=== PATIENT | male | born 1950 | race Caucasian/White ===

== ENCOUNTER 2022-01-15 | Observation (INO) | payer MEDICARE, OTHER ==
[2022-01-15 00:36] VITALS: BMI 36.9
[2022-01-15] MEDS ORDERED: Ketorolac Tromethamine 30 MG/ML VIAL IVP PRN (01:47)
[2022-01-15] MEDS ORDERED: Cyclobenzaprine 10 MG TAB PO PRN (01:48)
[2022-01-15] MEDS ORDERED: Senokot S 8.6-50 MG TAB PO PRN (01:49)
[2022-01-15] MEDS ORDERED: Bisacodyl 5 MG TAB PO PRN (01:49)
[2022-01-15] MEDS ORDERED: Ondansetron PF 4 MG/2 ML Vial IVP PRN (01:49)
[2022-01-15] MEDS ORDERED: Acetaminophen 325 MG TAB PO PRN (01:52)
[2022-01-15] MEDS: Albuterol Sulfate 2.5 mg/3 ml Neb NEB SCH ×3 (02:49→10:45)
[2022-01-15 06:16] LABS: #Monocytes 0.3 thou/uL (0.11-0.59); %Basophils 0.1 % (0.0-1.0); %Eosinophils 0.1 % (0.0-10.0); %Lymphocytes 9.3 % (21.0-51.0); %Monocytes 2.2 % (0.0-10.0); %Neutrophils 88.4 % (42.0-75.0); Hemoglobin 15.9 g/dL (14.0-18.0); Mean Corpuscular Hemoglobin 30.3 pg (27.0-31.0); Mean Corpuscular Volume 94.6 fL (78.0-98.0); Mean Platelet Volume 6.6 fL (7.4-10.4); Platelet Count 302 thou/uL (130-400); RBC Distribution Width 13.6 % (11.5-14.5); Red Blood Cell (RBC) Count 5.25 mill/uL (4.70-6.10); White Blood Cell (WBC) Count 11.3 thou/uL (4.8-10.8)
[2022-01-15 06:52] LABS: Anion Gap 20 mmol/L (10-20); BUN (Urea Nitrogen) 13 mg/dL (8.4-25.7); Calc. Creatinine Clearance 138 mL/min (70-130); Calcium 9.1 mg/dL (7.8-10.44); Carbon Dioxide 20 mmol/L (23-31); Chloride 96 mmol/L (98-107); Glucose 159 mg/dL (80-115); Potassium 3.8 mmol/L (3.5-5.1); Sodium 132 mmol/L (136-145)
[2022-01-15] MEDS: Ipratropium Bromide 2.5 ml Neb NEB SCH ×2 (07:17→13:45)
[2022-01-15] MEDS: Enoxaparin Sodium 40 MG/0.4 ML SYRINGE SC SCH (09:02)
[2022-01-15] MEDS: Aspirin 81 mg Enteric Coated Tablet PO SCH (09:02)
[2022-01-15] MEDS: Bupropion 150 MG SR TAB PO SCH ×2 (09:02→20:22)
[2022-01-15] MEDS: Tamsulosin HCl 0.4 MG CAP PO SCH (09:02)
[2022-01-15] MEDS: Lidocaine 5% Patch TD SCH (09:02)
[2022-01-15] MEDS: Loratadine 10 MG TAB PO SCH (09:02)
[2022-01-15] MEDS ORDERED: Magnevist 469MG/ML 20 ML VIAL ONE (10:29)
[2022-01-15] MEDS ORDERED: Dexamethasone 4 MG TAB PO SCH ×2 (10:30→21:00)
[2022-01-15] MEDS ORDERED: Albuterol Sulfate 2.5 mg/3 ml Neb IPPB PRN (13:37)
[2022-01-15 16:23] LABS: SARS-CoV-2 PCR by NAA Not Detected (NotDetected)
[2022-01-15] MEDS ORDERED: traZODone HCl 150 MG TAB PO SCH (21:00)
[2022-01-15] MEDS ORDERED: Lidocaine Patch Removal TOP SCH (21:00)
[2022-01-15] MEDS ORDERED: Atorvastatin Calcium 40 MG TAB PO SCH (21:00)
[2022-01-16] MEDS: Lidocaine 5% Patch TD SCH (08:49)
[2022-01-16] MEDS: Aspirin 81 mg Enteric Coated Tablet PO SCH (08:50)
[2022-01-16] MEDS: Bupropion 150 MG SR TAB PO SCH (08:50)
[2022-01-16] MEDS: Tamsulosin HCl 0.4 MG CAP PO SCH (08:50)
[2022-01-16] MEDS: Enoxaparin Sodium 40 MG/0.4 ML SYRINGE SC SCH (08:50)
[2022-01-16] MEDS: Loratadine 10 MG TAB PO SCH (08:50)
[2022-01-16 11:44] VITALS: TEMP 98.1
[2022-01-16 13:33] VITALS: BP 136/83
== END 2022-01-16 14:05 | disposition home or self-care (01) ==
LOC: T4-B 00:20
PROVIDERS: ADMIT Family Medicine; ATTEND Family Medicine
DX: M47.816 Spondylosis without myelopathy or radiculopathy, lumbar region (principal); M47.815 Spondylosis without myelopathy or radiculopathy, thoracolumbar region; M47.817 Spondylosis without myelopathy or radiculopathy, lumbosacral region; M51.36 Other intervertebral disc degeneration, lumbar region; M51.26 Other intervertebral disc displacement, lumbar region; M48.061 Spinal stenosis, lumbar region without neurogenic claudication; M48.07 Spinal stenosis, lumbosacral region; N50.0 Atrophy of testis; N50.89 Other specified disorders of the male genital organs; R29.6 Repeated falls; J44.9 Chronic obstructive pulmonary disease, unspecified; E87.1 Hypo-osmolality and hyponatremia; I25.10 Atherosclerotic heart disease of native coronary artery without angina pectoris; F17.210 Nicotine dependence, cigarettes, uncomplicated; N40.0 Benign prostatic hyperplasia without lower urinary tract symptoms; E78.5 Hyperlipidemia, unspecified; N50.3 Cyst of epididymis; Z79.82 Long term (current) use of aspirin; Z79.899 Other long term (current) drug therapy; Z95.1 Presence of aortocoronary bypass graft; Z20.822 Contact with and (suspected) exposure to COVID-19
CPT/HCPCS: 36415; 72158; 76870; 80048; 82105; 84153; 84154; 84702; 85025; 93976; 94640; 96372; A9579; G0378; J1650; J7611; J7620; J8540; U0003; U0005

== ENCOUNTER 2023-02-23 11:41 | Inpatient (IN) | payer MEDICARE ==
[2023-02-23 12:18] LABS: #Basophils 0.1 thou/uL (0.0-0.2); #Eosinphils 0.1 thou/uL (0.0-0.7); Hemoglobin 13.6 g/dL (14.0-18.0); RBC Distribution Width 14.1 % (11.5-14.5)
[2023-02-23 12:20] LABS: #Monocytes 1.3 thou/uL (0.11-0.59); %Basophils 0.7 % (0.0-1.0); %Eosinophils 0.9 % (0.0-10.0); %Lymphocytes 13.9 % (21.0-51.0); %Monocytes 10.4 % (0.0-10.0); %Neutrophils 73.7 % (42.0-75.0); Mean Corpuscular HGB CONC 32.6 g/dL (32.0-36.0); Mean Corpuscular Hemoglobin 28.6 pg (27.0-31.0); Mean Corpuscular Volume 87.8 fl (78.0-98.0); Mean Platelet Volume 9.7 fL (7.4-10.4); Platelet Count 244 10x3/uL (130-400); Red Blood Cell (RBC) Count 4.75 mill/uL (4.70-6.10); White Blood Cell (WBC) Count 12.3 10x3/uL (4.8-10.8)
[2023-02-23 12:36] LABS: INR-International Normal Ratio 1.1; Prothrombin Time 14.3 sec (12.0-14.7)
[2023-02-23 12:37] LABS: PTT 38.3 sec (22.9-36.1)
[2023-02-23 12:50] LABS: ALT (SGPT) 15 U/L (8-55); AST (SGOT) 21 U/L (5-34); Albumin 3.7 g/dL (3.4-4.8); Alkaline Phosphatase 105 U/L (40-110); Anion Gap 14 mmol/L (10-20); BUN (Urea Nitrogen) 9 mg/dL (8.4-25.7); Bilirubin, Total 0.5 mg/dL (0.2-1.2); Calc. Creatinine Clearance 0 mL/min (70-130); Calcium 8.7 mg/dL (7.8-10.44); Carbon Dioxide 24 mmol/L (23-31); Chloride 95 mmol/L (98-107); Estimated GFR 100; Globulin 4.1 g/dL (2.4-3.5); Glucose 81 mg/dL (80-115); Potassium 3.9 mmol/L (3.5-5.1); Protein, Total 7.8 g/dL (5.8-8.1); Sodium 129 mmol/L (136-145)
[2023-02-23 15:01] VITALS: BMI 36.1
[2023-02-23] MEDS ORDERED: Ondansetron PF 4 MG/2 ML Vial IVP PRN (15:29)
[2023-02-23] MEDS ORDERED: hydrALAZINE 20 MG/ML VIAL SLOW IVP PRN (15:29)
[2023-02-23] MEDS ORDERED: Acetaminophen 650 MG Suppository PR PRN (15:29)
[2023-02-23] MEDS ORDERED: Senokot S 8.6-50 MG TAB PO PRN (15:29)
[2023-02-23] MEDS ORDERED: Ondansetron ODT 4 MG TAB PO PRN (15:29)
[2023-02-23] MEDS ORDERED: Aspirin 81 mg Enteric Coated Tablet PO SCH (15:45)
[2023-02-23] MEDS: Atorvastatin Calcium 40 MG TAB PO SCH (20:26)
[2023-02-24] MEDS ORDERED: Sterile Water 10 ML VIAL FS PRN (00:45)
[2023-02-24] MEDS ORDERED: OLANZapine 10 MG VIAL IM SCH (00:45)
[2023-02-24 05:16] LABS: #Basophils 0.1 thou/uL (0.0-0.2); #Eosinphils 0.1 thou/uL (0.0-0.7); #Monocytes 1.1 thou/uL (0.11-0.59); #Neutrophils 7.8 thou/uL (1.40-6.50); %Basophils 0.5 % (0.0-1.0); %Eosinophils 1.2 % (0.0-10.0); %Lymphocytes 14.9 % (21.0-51.0); %Monocytes 10.5 % (0.0-10.0); %Neutrophils 72.6 % (42.0-75.0); Hemoglobin 13.6 g/dL (14.0-18.0); Mean Corpuscular HGB CONC 32.8 g/dL (32.0-36.0); Mean Corpuscular Hemoglobin 28.5 pg (27.0-31.0); Mean Platelet Volume 9.6 fL (7.4-10.4); Platelet Count 246 10x3/uL (130-400); RBC Distribution Width 14.2 % (11.5-14.5); Red Blood Cell (RBC) Count 4.77 mill/uL (4.70-6.10); White Blood Cell (WBC) Count 10.8 10x3/uL (4.8-10.8)
[2023-02-24 05:42] LABS: Anion Gap 14 mmol/L (10-20); BUN (Urea Nitrogen) 9 mg/dL (8.4-25.7); Calc. Creatinine Clearance 179 mL/min (70-130); Calcium 8.7 mg/dL (7.8-10.44); Carbon Dioxide 24 mmol/L (23-31); Chloride 95 mmol/L (98-107); Cholesterol 113 mg/dl (< 200 Desired); Estimated GFR 102; Glucose 72 mg/dL (80-115); HDL Cholesterol 38 mg/dL (>60 Neg Risk); LDL Cholesterol, Calculated 63 mg/dL; Potassium 3.7 mmol/L (3.5-5.1); Sodium 129 mmol/L (136-145); Triglycerides 59 mg/dL (Less than 150)
[2023-02-24] MEDS ORDERED: Aspirin 81 mg Enteric Coated Tablet PO SCH (09:00)
[2023-02-24] MEDS ORDERED: Non-Formulary Item 1 EACH (Tiotropium Bromide [Spiriva Handihaler] 18 MCG Cap.W.Dev) IH SCH (09:00)
[2023-02-24] MEDS ORDERED: Lorazepam 2 MG/ML VIAL SLOW IVP SCH (10:12)
[2023-02-24] MEDS: Aspirin 300 MG Suppository PR SCH (10:14)
[2023-02-24] MEDS: Sodium Chloride 0.9% 1,000 ML IV SCH (10:16)
[2023-02-24 11:13] LABS: Potassium, Urine 47.9 mmol/L
[2023-02-24] MEDS: Ipratropium Bromide 2.5 ml Neb NEB SCH ×2 (13:24→19:30)
[2023-02-24] MEDS: Tamsulosin HCl 0.4 MG CAP PO SCH (15:39)
[2023-02-24] MEDS: Atorvastatin Calcium 40 MG TAB PO SCH (20:36)
[2023-02-25] MEDS: Ipratropium Bromide 2.5 ml Neb NEB SCH ×4 (01:08→19:55)
[2023-02-25 05:30] LABS: #Basophils 0.1 thou/uL (0.0-0.2); #Eosinphils 0.2 thou/uL (0.0-0.7); #Monocytes 1.2 thou/uL (0.11-0.59); #Neutrophils 6.8 thou/uL (1.40-6.50); %Basophils 0.8 % (0.0-1.0); %Eosinophils 2.3 % (0.0-10.0); %Lymphocytes 15.2 % (21.0-51.0); %Monocytes 12.2 % (0.0-10.0); %Neutrophils 69.3 % (42.0-75.0); Hemoglobin 12.7 g/dL (14.0-18.0); Mean Corpuscular HGB CONC 32.7 g/dL (32.0-36.0); Mean Corpuscular Hemoglobin 28.5 pg (27.0-31.0); Mean Platelet Volume 9.7 fL (7.4-10.4); Platelet Count 223 10x3/uL (130-400); RBC Distribution Width 14.2 % (11.5-14.5); Red Blood Cell (RBC) Count 4.46 mill/uL (4.70-6.10); White Blood Cell (WBC) Count 9.8 10x3/uL (4.8-10.8)
[2023-02-25 05:55] LABS: Anion Gap 14 mmol/L (10-20); BUN (Urea Nitrogen) 8 mg/dL (8.4-25.7); Calc. Creatinine Clearance 168 mL/min (70-130); Calcium 8.5 mg/dL (7.8-10.44); Carbon Dioxide 26 mmol/L (23-31); Chloride 92 mmol/L (98-107); Estimated GFR 100; Glucose 61 mg/dL (80-115); Potassium 3.9 mmol/L (3.5-5.1); Sodium 128 mmol/L (136-145)
[2023-02-25] MEDS: Sodium Chloride 0.9% 1,000 ML IV SCH (07:24)
[2023-02-25] MEDS: Aspirin 300 MG Suppository PR SCH (09:21)
[2023-02-25] MEDS: Tamsulosin HCl 0.4 MG CAP PO SCH ×2 (09:22→09:33)
[2023-02-25 19:37] LABS: Sodium 129 mmol/L (136-145)
[2023-02-25] MEDS: Apixaban 5 MG TAB PO SCH (20:25)
[2023-02-25] MEDS: Atorvastatin Calcium 40 MG TAB PO SCH (20:25)
[2023-02-26] MEDS: Ipratropium Bromide 2.5 ml Neb NEB SCH ×4 (00:52→19:14)
[2023-02-26 02:09] LABS: #Basophils 0.1 thou/uL (0.0-0.2); #Eosinphils 0.3 thou/uL (0.0-0.7); #Monocytes 1.2 thou/uL (0.11-0.59); %Eosinophils 2.7 % (0.0-10.0); %Lymphocytes 18.4 % (21.0-51.0); %Monocytes 12.6 % (0.0-10.0); %Neutrophils 65.1 % (42.0-75.0); Hemoglobin 13.1 g/dL (14.0-18.0); Mean Corpuscular Hemoglobin 28.1 pg (27.0-31.0); Mean Platelet Volume 9.2 fL (7.4-10.4); Platelet Count 222 10x3/uL (130-400); RBC Distribution Width 14.3 % (11.5-14.5); Red Blood Cell (RBC) Count 4.67 mill/uL (4.70-6.10); White Blood Cell (WBC) Count 9.2 10x3/uL (4.8-10.8)
[2023-02-26 02:28] LABS: Sodium 128 mmol/L (136-145)
[2023-02-26 02:43] LABS: Anion Gap 13 mmol/L (10-20); BUN (Urea Nitrogen) 10 mg/dL (8.4-25.7); Calc. Creatinine Clearance 171 mL/min (70-130); Calcium 8.7 mg/dL (7.8-10.44); Carbon Dioxide 24 mmol/L (23-31); Chloride 95 mmol/L (98-107); Estimated GFR 100; Glucose 88 mg/dL (80-115); Potassium 3.8 mmol/L (3.5-5.1); Sodium 128 mmol/L (136-145)
[2023-02-26 08:15] LABS: Sodium 127 mmol/L (136-145)
[2023-02-26] MEDS: Apixaban 5 MG TAB PO SCH ×2 (10:55→20:27)
[2023-02-26] MEDS: Tamsulosin HCl 0.4 MG CAP PO SCH (10:55)
[2023-02-26 15:33] LABS: Sodium 126 mmol/L (136-145)
[2023-02-26 19:34] LABS: Sodium 127 mmol/L (136-145)
[2023-02-26] MEDS: Atorvastatin Calcium 40 MG TAB PO SCH (20:27)
[2023-02-27] MEDS: Ipratropium Bromide 2.5 ml Neb NEB SCH ×3 (01:27→13:07)
[2023-02-27 01:30] LABS: Sodium 126 mmol/L (136-145)
[2023-02-27 06:27] LABS: #Basophils 0.1 thou/uL (0.0-0.2); #Eosinphils 0.3 thou/uL (0.0-0.7); #Monocytes 1.3 thou/uL (0.11-0.59); #Neutrophils 5.4 thou/uL (1.40-6.50); %Basophils 0.9 % (0.0-1.0); %Eosinophils 3.6 % (0.0-10.0); %Lymphocytes 19.3 % (21.0-51.0); %Monocytes 14.5 % (0.0-10.0); %Neutrophils 61.5 % (42.0-75.0); Hemoglobin 13.2 g/dL (14.0-18.0); Mean Corpuscular HGB CONC 33.5 g/dL (32.0-36.0); Mean Corpuscular Hemoglobin 28.9 pg (27.0-31.0); Mean Corpuscular Volume 86.4 fl (78.0-98.0); Platelet Count 224 10x3/uL (130-400); RBC Distribution Width 14.4 % (11.5-14.5); Red Blood Cell (RBC) Count 4.56 mill/uL (4.70-6.10); White Blood Cell (WBC) Count 8.7 10x3/uL (4.8-10.8)
[2023-02-27 06:50] LABS: Anion Gap 13 mmol/L (10-20); BUN (Urea Nitrogen) 5 mg/dL (8.4-25.7); Calc. Creatinine Clearance 168 mL/min (70-130); Calcium 8.8 mg/dL (7.8-10.44); Carbon Dioxide 26 mmol/L (23-31); Chloride 91 mmol/L (98-107); Estimated GFR 100; Glucose 91 mg/dL (80-115); Potassium 3.8 mmol/L (3.5-5.1); Sodium 126 mmol/L (136-145)
[2023-02-27] MEDS: Tamsulosin HCl 0.4 MG CAP PO SCH (09:14)
[2023-02-27] MEDS: Apixaban 5 MG TAB PO SCH ×2 (09:15→20:44)
[2023-02-27] MEDS ORDERED: Sodium Chloride 1 GM TAB PO SCH (10:00)
[2023-02-27] MEDS ORDERED: Ipratropium Bromide 2.5 ml Neb NEB PRN (13:18)
[2023-02-27 14:41] LABS: Anion Gap 15 mmol/L (10-20); BUN (Urea Nitrogen) 6 mg/dL (8.4-25.7); Calc. Creatinine Clearance 149 mL/min (70-130); Calcium 9.4 mg/dL (7.8-10.44); Carbon Dioxide 26 mmol/L (23-31); Chloride 90 mmol/L (98-107); Estimated GFR 96; Glucose 111 mg/dL (80-115); Potassium 4.1 mmol/L (3.5-5.1); Sodium 127 mmol/L (136-145)
[2023-02-27] MEDS: Sodium Chloride 1 GM TAB PO SCH ×2 (15:08→20:44)
[2023-02-27 17:16] LABS: Bacteria/HPF None Seen HPF (None Seen); Bilirubin Negative (Negative); Blood, Urine Negative (Negative); Clarity Turbid (Clear); Glucose, Urine (Dipstick) Normal (Negative); Ketone, Urine Negative (Negative); Leukocyte 250 Leu/uL (Negative); Nitrite Negative (Negative); Protein, Urine (Dipstick) 10 mg/dL (Neg-Trace); RBC/HPF 0-3 HPF (0-3); Specific Gravity, Urine 1.013 (1.002-1.036); Squamous Epithelial 0-3 HPF (0-3)
[2023-02-27] MEDS: Acetaminophen 325 MG TAB PO PRN (20:43)
[2023-02-27] MEDS: Atorvastatin Calcium 40 MG TAB PO SCH (20:44)
[2023-02-27] MEDS: Ipratropium/Albuterol 3 ML NEB NEB PRN (21:36)
[2023-02-28 06:16] LABS: #Basophils 0.1 thou/uL (0.0-0.2); #Eosinphils 0.4 thou/uL (0.0-0.7); #Neutrophils 4.4 thou/uL (1.40-6.50); %Basophils 1.1 % (0.0-1.0); %Eosinophils 4.6 % (0.0-10.0); %Lymphocytes 24.6 % (21.0-51.0); %Monocytes 13.3 % (0.0-10.0); %Neutrophils 56.1 % (42.0-75.0); Hemoglobin 13.1 g/dL (14.0-18.0); Mean Corpuscular HGB CONC 32.9 g/dL (32.0-36.0); Mean Corpuscular Hemoglobin 28.5 pg (27.0-31.0); Mean Corpuscular Volume 86.7 fl (78.0-98.0); Mean Platelet Volume 9.6 fL (7.4-10.4); Platelet Count 251 10x3/uL (130-400); RBC Distribution Width 14.5 % (11.5-14.5); Red Blood Cell (RBC) Count 4.59 mill/uL (4.70-6.10); White Blood Cell (WBC) Count 7.8 10x3/uL (4.8-10.8)
[2023-02-28 06:44] LABS: Phosphorus 3.7 mg/dL (2.3-4.7)
[2023-02-28 06:46] LABS: Anion Gap 11 mmol/L (10-20); BUN (Urea Nitrogen) 6 mg/dL (8.4-25.7); Calc. Creatinine Clearance 168 mL/min (70-130); Calcium 8.7 mg/dL (7.8-10.44); Carbon Dioxide 27 mmol/L (23-31); Chloride 93 mmol/L (98-107); Estimated GFR 100; Glucose 94 mg/dL (80-115); Magnesium 1.6 mg/dL (1.6-2.6); Potassium 3.9 mmol/L (3.5-5.1); Sodium 127 mmol/L (136-145)
[2023-02-28] MEDS ORDERED: Magnesium 2 GM/50 ML(in water) 2 GM in Premix Bag 1 BAG IVPB SCH (08:00)
[2023-02-28] MEDS: Tamsulosin HCl 0.4 MG CAP PO SCH (08:15)
[2023-02-28] MEDS: Apixaban 5 MG TAB PO SCH ×2 (08:15→20:51)
[2023-02-28] MEDS: Sodium Chloride 1 GM TAB PO SCH ×3 (08:15→20:51)
[2023-02-28] MEDS ORDERED: Magnesium Oxide 400 MG TAB PO SCH (10:00)
[2023-02-28] MEDS: Atorvastatin Calcium 40 MG TAB PO SCH (20:51)
[2023-02-28] MEDS: Magnesium Oxide 400 MG TAB PO SCH (20:51)
[2023-02-28] MEDS: Ipratropium/Albuterol 3 ML NEB NEB PRN (21:09)
[2023-02-28] MEDS: Melatonin 3 MG TAB PO PRN (23:41)
[2023-02-28] MEDS: Acetaminophen 325 MG TAB PO PRN (23:41)
[2023-03-01] MEDS: Sodium Chloride 1 GM TAB PO SCH ×3 (08:12→21:18)
[2023-03-01] MEDS: Magnesium Oxide 400 MG TAB PO SCH ×2 (08:12→21:18)
[2023-03-01] MEDS: Apixaban 5 MG TAB PO SCH ×2 (08:12→21:18)
[2023-03-01] MEDS: Tamsulosin HCl 0.4 MG CAP PO SCH (08:13)
[2023-03-01 08:45] LABS: Anion Gap 10 mmol/L (10-20); BUN (Urea Nitrogen) 5 mg/dL (8.4-25.7); Calc. Creatinine Clearance 166 mL/min (70-130); Calcium 8.7 mg/dL (7.8-10.44); Carbon Dioxide 29 mmol/L (23-31); Chloride 93 mmol/L (98-107); Estimated GFR 100; Glucose 97 mg/dL (80-115); Potassium 4.4 mmol/L (3.5-5.1); Sodium 128 mmol/L (136-145)
[2023-03-01] MEDS: Losartan 25 MG TAB PO SCH (10:40)
[2023-03-01] MEDS: Atorvastatin Calcium 40 MG TAB PO SCH (21:17)
[2023-03-01] MEDS: Melatonin 3 MG TAB PO PRN (21:17)
[2023-03-01] MEDS ORDERED: Electrolyte Replacement Protocol 1 EACH FS PRN (21:45)
[2023-03-01] MEDS: Ipratropium/Albuterol 3 ML NEB NEB PRN (23:46)
[2023-03-02 06:06] LABS: Anion Gap 14 mmol/L (10-20); BUN (Urea Nitrogen) 7 mg/dL (8.4-25.7); Calc. Creatinine Clearance 163 mL/min (70-130); Calcium 9.1 mg/dL (7.8-10.44); Carbon Dioxide 27 mmol/L (23-31); Chloride 90 mmol/L (98-107); Estimated GFR 99; Glucose 91 mg/dL (80-115); Magnesium 1.8 mg/dL (1.6-2.6); Potassium 4.1 mmol/L (3.5-5.1); Sodium 127 mmol/L (136-145)
[2023-03-02] MEDS ORDERED: Magnesium 2 GM/50 ML(in water) 2 GM in Premix Bag 1 BAG IVPB SCH (08:00)
[2023-03-02] MEDS: Sodium Chloride 1 GM TAB PO SCH ×3 (09:02→20:06)
[2023-03-02] MEDS: Apixaban 5 MG TAB PO SCH ×2 (09:02→20:05)
[2023-03-02] MEDS: Magnesium Oxide 400 MG TAB PO SCH ×2 (09:02→20:05)
[2023-03-02] MEDS: Tamsulosin HCl 0.4 MG CAP PO SCH (09:02)
[2023-03-02] MEDS: Losartan 25 MG TAB PO SCH (09:02)
[2023-03-02] MEDS: Atorvastatin Calcium 40 MG TAB PO SCH (20:06)
[2023-03-03 05:35] LABS: #Basophils 0.1 thou/uL (0.0-0.2); #Eosinphils 0.4 thou/uL (0.0-0.7); #Monocytes 1.2 thou/uL (0.11-0.59); #Neutrophils 5.7 thou/uL (1.40-6.50); %Basophils 1.1 % (0.0-1.0); %Eosinophils 3.8 % (0.0-10.0); %Lymphocytes 21.5 % (21.0-51.0); %Neutrophils 60.4 % (42.0-75.0); Hemoglobin 13.5 g/dL (14.0-18.0); Mean Corpuscular HGB CONC 32.6 g/dL (32.0-36.0); Mean Corpuscular Hemoglobin 28.7 pg (27.0-31.0); Mean Corpuscular Volume 87.9 fl (78.0-98.0); Mean Platelet Volume 9.7 fL (7.4-10.4); Platelet Count 271 10x3/uL (130-400); RBC Distribution Width 14.6 % (11.5-14.5); Red Blood Cell (RBC) Count 4.71 mill/uL (4.70-6.10); White Blood Cell (WBC) Count 9.4 10x3/uL (4.8-10.8)
[2023-03-03 05:59] LABS: Anion Gap 12 mmol/L (10-20); BUN (Urea Nitrogen) 9 mg/dL (8.4-25.7); Calc. Creatinine Clearance 163 mL/min (70-130); Calcium 9.1 mg/dL (7.8-10.44); Carbon Dioxide 27 mmol/L (23-31); Chloride 92 mmol/L (98-107); Estimated GFR 99; Glucose 89 mg/dL (80-115); Magnesium 1.9 mg/dL (1.6-2.6); Potassium 4.3 mmol/L (3.5-5.1); Sodium 127 mmol/L (136-145)
[2023-03-03] MEDS: Magnesium Oxide 400 MG TAB PO SCH ×2 (08:29→21:02)
[2023-03-03] MEDS: Tamsulosin HCl 0.4 MG CAP PO SCH (08:29)
[2023-03-03] MEDS: Apixaban 5 MG TAB PO SCH ×2 (08:29→21:03)
[2023-03-03] MEDS: Losartan 25 MG TAB PO SCH (08:30)
[2023-03-03] MEDS: Sodium Chloride 1 GM TAB PO SCH ×3 (08:30→21:02)
[2023-03-03] MEDS: Acetaminophen 325 MG TAB PO PRN (08:34)
[2023-03-03] MEDS: Ipratropium/Albuterol 3 ML NEB NEB PRN (17:35)
[2023-03-03] MEDS: Atorvastatin Calcium 40 MG TAB PO SCH (21:03)
[2023-03-04] MEDS: Ipratropium/Albuterol 3 ML NEB NEB PRN (01:05)
[2023-03-04 05:29] LABS: Phosphorus 3.6 mg/dL (2.3-4.7)
[2023-03-04 05:30] LABS: Anion Gap 12 mmol/L (10-20); BUN (Urea Nitrogen) 14 mg/dL (8.4-25.7); Calc. Creatinine Clearance 151 mL/min (70-130); Calcium 9.1 mg/dL (7.8-10.44); Carbon Dioxide 28 mmol/L (23-31); Chloride 96 mmol/L (98-107); Estimated GFR 97; Glucose 92 mg/dL (80-115); Magnesium 1.8 mg/dL (1.6-2.6); Potassium 4.6 mmol/L (3.5-5.1); Sodium 131 mmol/L (136-145)
[2023-03-04] MEDS: Magnesium Oxide 400 MG TAB PO SCH ×2 (09:09→20:03)
[2023-03-04] MEDS: Sodium Chloride 1 GM TAB PO SCH ×3 (09:09→20:04)
[2023-03-04] MEDS: Losartan 25 MG TAB PO SCH (09:09)
[2023-03-04] MEDS: Apixaban 5 MG TAB PO SCH ×2 (09:10→20:03)
[2023-03-04] MEDS: Tamsulosin HCl 0.4 MG CAP PO SCH (09:10)
[2023-03-04] MEDS: Atorvastatin Calcium 40 MG TAB PO SCH (20:03)
[2023-03-04] MEDS: Melatonin 3 MG TAB PO PRN (20:04)
[2023-03-05] MEDS: Sodium Chloride 1 GM TAB PO SCH ×3 (08:29→21:25)
[2023-03-05] MEDS: Magnesium Oxide 400 MG TAB PO SCH ×2 (08:29→21:25)
[2023-03-05] MEDS: Losartan 25 MG TAB PO SCH (08:30)
[2023-03-05] MEDS: Apixaban 5 MG TAB PO SCH ×2 (08:30→21:24)
[2023-03-05] MEDS: Tamsulosin HCl 0.4 MG CAP PO SCH (08:30)
[2023-03-05 08:37] LABS: Anion Gap 13 mmol/L (10-20); BUN (Urea Nitrogen) 12 mg/dL (8.4-25.7); Calc. Creatinine Clearance 159 mL/min (70-130); Calcium 9.2 mg/dL (7.8-10.44); Carbon Dioxide 27 mmol/L (23-31); Chloride 96 mmol/L (98-107); Estimated GFR 98; Glucose 99 mg/dL (80-115); Potassium 4.5 mmol/L (3.5-5.1); Sodium 131 mmol/L (136-145)
[2023-03-05] MEDS: Atorvastatin Calcium 40 MG TAB PO SCH (21:24)
[2023-03-06 06:14] LABS: Anion Gap 13 mmol/L (10-20); BUN (Urea Nitrogen) 13 mg/dL (8.4-25.7); Calc. Creatinine Clearance 173 mL/min (70-130); Carbon Dioxide 26 mmol/L (23-31); Chloride 95 mmol/L (98-107); Estimated GFR 101; Glucose 88 mg/dL (80-115); Potassium 4.4 mmol/L (3.5-5.1); Sodium 130 mmol/L (136-145)
[2023-03-06 08:35] VITALS: TEMP 97.2
[2023-03-06] MEDS: Apixaban 5 MG TAB PO SCH (08:43)
[2023-03-06] MEDS: Magnesium Oxide 400 MG TAB PO SCH (08:43)
[2023-03-06] MEDS: Tamsulosin HCl 0.4 MG CAP PO SCH (08:43)
[2023-03-06] MEDS: Losartan 25 MG TAB PO SCH (08:43)
[2023-03-06] MEDS ORDERED: Sodium Chloride 1 GM TAB PO SCH (09:00)
[2023-03-06 14:51] VITALS: BP 148/68
== END 2023-03-06 14:45 | DRG 643 ==
LOC: ERS 11:41 → NEURO 14:25 → OBSVTOIN 02-26 11:10 → 2SE 02-28 10:22
PROVIDERS: ADMIT Family Medicine; ATTEND Internal Medicine
DX: E22.2 Syndrome of inappropriate secretion of antidiuretic hormone (principal); G93.41 Metabolic encephalopathy; G81.94 Hemiplegia, unspecified affecting left nondominant side; J44.9 Chronic obstructive pulmonary disease, unspecified; Z66 Do not resuscitate; N40.0 Benign prostatic hyperplasia without lower urinary tract symptoms; I10 Essential (primary) hypertension; R29.810 Facial weakness; E78.5 Hyperlipidemia, unspecified; R13.10 Dysphagia, unspecified; I48.91 Unspecified atrial fibrillation; I35.0 Nonrheumatic aortic (valve) stenosis; E83.42 Hypomagnesemia; F17.210 Nicotine dependence, cigarettes, uncomplicated; I25.10 Atherosclerotic heart disease of native coronary artery without angina pectoris; Z95.1 Presence of aortocoronary bypass graft; Z79.899 Other long term (current) drug therapy; Z79.82 Long term (current) use of aspirin; Z98.890 Other specified postprocedural states; Z71.6 Tobacco abuse counseling
CPT/HCPCS: 36415; 36416; 70450; 70551; 71045; 74230; 80048; 80053; 80061; 81001; 82436; 83735; 83880; 83930; 83935; 84100; 84133; 84300; 84484; 84540; 85025; 85610; 85730; 93005; 93010; 93306; 93880; 94640; 94760; 96372; 96374; G0378; J1650; J2060; J7050; J7620